=== PATIENT | male | born 1985 | race Caucasian/White ===

== ENCOUNTER 2020-12-31 22:53 | Emergency (ER) | payer OTHER ==
[2020-12-31 23:23] VITALS: TEMP 98.3
[2021-01-01] MEDS ORDERED: SODIUM CHLORIDE 0.9% 1,000 ML IV ONE (00:11)
[2021-01-01 00:31] LABS: Basophils % (A) 1 %; Eosinophils # (A) 0.1 k/uL (0-0.7); Eosinophils % (A) 1 %; HCT 48.1 % (39.0-53.0); HGB 16.1 gm/dL (13.0-17.5); Lymphocytes # (A) 0.6 k/uL (1.0-4.8); Lymphocytes % (A) 7 %; MCH 27.4 pg (25.0-35.0); MCHC 33.5 g/dL (31.0-37.0); MCV 81.8 fL (80.0-100.0); Mean Platelet Volume 7.1; Monocytes # (A) 0.7 k/uL (0-1.0); Monocytes % (A) 8 %; Neutrophils # (A) 7.1 k/uL (1.3-7.7); Neutrophils % (A) 82 %; Platelet Count 260 k/uL (150-450); RBC 5.87 m/uL (4.30-5.90); RDW 15.8 % (11.5-15.5); WBC 8.7 k/uL (3.8-10.6)
[2021-01-01] MEDS ORDERED: DIAZEPAM 5 MG/ML 2 ML INJ IVP STA (00:42)
[2021-01-01 00:50] LABS: Albumin 5.4 g/dL (3.5-5.0); Calcium 10.7 mg/dL (8.4-10.2); Magnesium 1.7 mg/dL (1.6-2.3); Phosphorus 3.7 mg/dL (2.5-4.5); Potassium 4.4 mmol/L (3.5-5.1); Total Bilirubin 2.5 mg/dL (0.2-1.3); Total Protein 8.7 g/dL (6.3-8.2)
[2021-01-01] MEDS ORDERED: MAGNESIUM SULFATE-D5W PMX 1 GM in DEXTROSE/WATER 1 100ML.BAG IVPB ONE (02:45)
--- NOTE | 2021-01-01 02:50 | ED ---
General Adult HPI - General Chief complaint: Nausea/Vomiting/Diarrhea Stated complaint: leg/hand cramps Time Seen by Provider: 01/01/21 00:11 Source: patient Mode of arrival: wheelchair Limitations: no limitations - History of Present Illness Initial comments: Patient is a 35-year-old man who presents to be evaluated for bilateral leg spasms that is been going on since about 9 PM tonight. He is having bilateral and spasms but not as severe. Spasms will last for minutes at a time, resolve but are recurring. He did have less severe episode last night that resolved and did not require him to come in. Patient does admit to drinking alcohol daily he states probably a pint and a half. -: hour(s) Location: left, right, lower extremity Radiation: non-radiation Severity scale (1-10): 10 Quality: other (Spasms) Consistency: constant Improves with: none Worsens with: none Associated Symptoms: denies other symptoms Treatments Prior to Arrival: none - Related Data Previous Rx's Medication Instructions Recorded Magnesium Oxide [Mag-Ox] 400 mg PO DAILY #30 tablet 01/01/21 diazePAM [Valium] 5 mg PO Q8HR PRN 3 Days #9 tab 01/01/21 Allergies Allergy/AdvReac Type Severity Reaction Status Date / Time amoxicillin Allergy Unknown Verified 12/31/20 23:20 Review of Systems ROS Statement: Those systems with pertinent positive or pertinent negative responses have been documented in the HPI. ROS Other: All systems not noted in ROS Statement are negative. Constitutional: Denies: fever, chills, weakness Respiratory: Denies: cough, dyspnea Cardiovascular: Denies: chest pain, palpitations, edema, syncope Gastrointestinal: Reports: vomiting, diarrhea. Denies: abdominal pain, constipation, melena, hematochezia Genitourinary: Denies: dysuria, frequency, hematuria Musculoskeletal: Reports: as per HPI, myalgia. Denies: back pain Skin: Denies: rash Neurological: Denies: headache, weakness, numbness, paresthesias Past Medical History Past Medical History: Cancer Additional Past Medical History / Comment(s): testicular History of Any Multi-Drug Resistant Organisms: None Reported Additional Past Surgical History / Comment(s): testicular surger Past Psychological History: No Psychological Hx Reported Smoking Status: Current every day smoker Past Alcohol Use History: Daily Past Drug Use History: Marijuana General Exam Limitations: no limitations General appearance: alert, in no apparent distress Head exam: Present: atraumatic, normocephalic Eye exam: Present: normal appearance. Absent: scleral icterus, conjunctival injection ENT exam: Present: mucous membranes dry Neck exam: Present: normal inspection Respiratory exam: Present: normal lung sounds bilaterally. Absent: respiratory distress, wheezes, rales, rhonchi, stridor Cardiovascular Exam: Present: regular rate, normal rhythm, normal heart sounds. Absent: systolic murmur, diastolic murmur, rubs, gallop GI/Abdominal exam: Present: soft. Absent: distended, tenderness, guarding, rebound, rigid, mass Extremities exam: Present: normal inspection, normal capillary refill, other (The patient did have intermittent spasms, while I was present he was having spasm to the muscles of the right calf and pretibial area.). Absent: pedal edema, calf tenderness Back exam: Present: normal inspection. Absent: CVA tenderness (R), CVA tenderness (L), paraspinal tenderness, vertebral tenderness Neurological exam: Present: alert. Absent: motor sensory deficit Skin exam: Present: warm, dry, intact, normal color. Absent: rash Course Vital Signs 12/31/20 01/01/21 01/01/21 23:20 00:34 02:00 Temperature 98.3 F Pulse Rate 85 81 68 Respiratory 18 22 18 Rate Blood Pressure 137/98 139/99 143/90 O2 Sat by Pulse 100 100 95 Oximetry Medical Decision Making - Medical Decision Making Patient had resolution spasms after fluids and Valium. Given his alcohol consumption some magnesium had been ordered as well. I did recommend tapering off his alcohol use, continuing the magnesium, and then we discussed appropriate further care and follow-up. Return parameters discussed - Lab Data Result diagrams: 01/01/21 00:19 01/01/21 00:19 Lab Results 01/01/21 01/01/21 Range/Units 00:19 00:19 WBC 8.7 (3.8-10.6) k/uL RBC 5.87 (4.30-5.90) m/uL Hgb 16.1 (13.0-17.5) gm/dL Hct 48.1 (39.0-53.0) % MCV 81.8 (80.0-100.0) fL MCH 27.4 (25.0-35.0) pg MCHC 33.5 (31.0-37.0) g/dL RDW 15.8 H (11.5-15.5) % Plt Count 260 (150-450) k/uL MPV 7.1 Neutrophils % 82 % Lymphocytes % 7 % Monocytes % 8 % Eosinophils % 1 % Basophils % 1 % Neutrophils # 7.1 (1.3-7.7) k/uL Lymphocytes # 0.6 L (1.0-4.8) k/uL Monocytes # 0.7 (0-1.0) k/uL Eosinophils # 0.1 (0-0.7) k/uL Basophils # 0.0 (0-0.2) k/uL Sodium 137 (137-145) mmol/L Potassium 4.4 (3.5-5.1) mmol/L Chloride 96 L (98-107) mmol/L Carbon Dioxide 26 (22-30) mmol/L Anion Gap 15 mmol/L BUN 15 (9-20) mg/dL Creatinine 1.23 (0.66-1.25) mg/dL Est GFR (CKD-EPI)AfAm 87 (>60 ml/min/1.73 sqM) Est GFR (CKD-EPI)NonAf 76 (>60 ml/min/1.73 sqM) Glucose 122 H (74-99) mg/dL Calcium 10.7 H (8.4-10.2) mg/dL Phosphorus 3.7 (2.5-4.5) mg/dL Magnesium 1.7 (1.6-2.3) mg/dL Total Bilirubin 2.5 H (0.2-1.3) mg/dL AST 266 H (17-59) U/L ALT 220 H (4-49) U/L Alkaline Phosphatase 222 H (38-126) U/L Total Protein 8.7 H (6.3-8.2) g/dL Albumin 5.4 H (3.5-5.0) g/dL Disposition Clinical Impression: Spasms of the hands or feet, Alcohol abuse Disposition: HOME SELF-CARE Condition: Good Instructions (If sedation given, give patient instructions): At-Risk Alcohol Use (ED), Muscle Spasm (ED) Prescriptions: Magnesium Oxide [Mag-Ox] 400 mg PO DAILY #30 tablet diazePAM [Valium] 5 mg PO Q8HR PRN 3 Days #9 tab PRN Reason: Spasms Is patient prescribed a controlled substance at d/c from ED?: Yes When asked, does pt state using other controlled substances?: No If prescribed controlled substance>3 days was MAPS reviewed?: Prescribed <3 Days Referrals: None,Stated [Primary Care Provider] - 1-2 days
[2021-01-01] MEDS ORDERED: ONDANSETRON 4 MG/2 ML VIAL IVP STA (02:56)
[2021-01-01 06:11] VITALS: BP 145/92; PULSE 70; RESP 14
== END 2021-01-01 06:12 | disposition home or self-care (01) ==
LOC: EC 22:53
DX: M62.831 Muscle spasm of calf (principal); R11.2 Nausea with vomiting, unspecified; R19.7 Diarrhea, unspecified; F10.10 Alcohol abuse, uncomplicated; F17.200 Nicotine dependence, unspecified, uncomplicated; Z88.0 Allergy status to penicillin
CPT/HCPCS: 99284; 96365; 96375; 96361; 36415; 93005; 80053; 83735; 84100; 85025; J3360; J2405; J3475

== ENCOUNTER 2021-10-28 08:56 | Inpatient (IN) | payer OTHER ==
[2021-10-28] MEDS ORDERED: SODIUM CHLORIDE 0.9% 1,000 ML IV STA (09:13)
[2021-10-28] MEDS ORDERED: SODIUM CHLORIDE 0.9% 500 ML 500 ML IV STA (09:13)
[2021-10-28] MEDS ORDERED: LORazepam 2 MG/ML INJ IV PRN (09:14)
--- NOTE | 2021-10-28 09:30 | ED ---
Alcohol HPI - General Chief Complaint: Alcohol Stated Complaint: Alcohol Time Seen by Provider: 10/28/21 09:06 Source: patient, family, RN notes reviewed Mode of arrival: wheelchair Limitations: no limitations - History of Present Illness Initial Comments: 36-year-old male presents emergency Department with chief complaint of alcohol abuse alcohol withdrawal. Patient states that he did drink some like her prior arrival to help with her symptoms. Patient states he gets very shaky, nauseated. Patient's had multiple seizures of recent from withdrawal. He states he actually was admitted the hospital 3 weeks ago. Patient states he wants to get sober for his withdrawal symptoms. Patient has no physical complaints he has been told that he has liver disease from alcohol abuse. Patient states he drinks at least a fifth to half gallon a day. Patient doesn't to marijuana use. No other physical complaints. - Related Data Home Medications Medication Instructions Recorded Confirmed Omeprazole 20 mg PO BID 10/28/21 10/28/21 levETIRAcetam [Keppra] 750 mg PO BID 10/28/21 10/28/21 Allergies Allergy/AdvReac Type Severity Reaction Status Date / Time amoxicillin Allergy Rash/Hives Verified 10/28/21 09:39 Review of Systems ROS Statement: Those systems with pertinent positive or pertinent negative responses have been documented in the HPI. ROS Other: All systems not noted in ROS Statement are negative. Past Medical History Past Medical History: Cancer, Seizure Disorder Additional Past Medical History / Comment(s): testicular, alcohol History of Any Multi-Drug Resistant Organisms: None Reported Additional Past Surgical History / Comment(s): testicular surger Past Psychological History: No Psychological Hx Reported Smoking Status: Current every day smoker Past Alcohol Use History: Daily Past Drug Use History: Marijuana General Exam Limitations: no limitations General appearance: alert, in no apparent distress Head exam: Present: atraumatic, normocephalic, normal inspection Eye exam: Present: normal appearance, PERRL, EOMI. Absent: scleral icterus, conjunctival injection, periorbital swelling ENT exam: Present: normal exam, normal oropharynx, mucous membranes moist Neck exam: Present: normal inspection, full ROM. Absent: tenderness, meningismus, lymphadenopathy Respiratory exam: Present: normal lung sounds bilaterally. Absent: respiratory distress, wheezes, rales, rhonchi, stridor Cardiovascular Exam: Present: regular rate, normal rhythm, normal heart sounds. Absent: systolic murmur, diastolic murmur, rubs, gallop, clicks GI/Abdominal exam: Present: soft, normal bowel sounds. Absent: distended, tenderness, guarding, rebound, rigid Skin exam: Present: warm, dry, intact, normal color. Absent: rash Course Vital Signs 10/28/21 08:57 Temperature 97.7 F Pulse Rate 93 Respiratory 18 Rate Blood Pressure 143/98 O2 Sat by Pulse 99 Oximetry Medical Decision Making - Medical Decision Making Patient's current alcohol is 455, patient does have a history of alcohol withdrawal with seizure of recent. Patient was placed on CIWA, with Ativan withdrawal protocol. Patient will be admitted for further hydration, management of symptoms - Lab Data Result diagrams: 10/28/21 09:17 10/28/21 09:17 Lab Results 10/28/21 10/28/21 Range/Units 09:17 09:17 WBC 6.8 (3.8-10.6) k/uL RBC 5.05 (4.30-5.90) m/uL Hgb 16.7 (13.0-17.5) gm/dL Hct 49.8 (39.0-53.0) % MCV 98.7 (80.0-100.0) fL MCH 33.2 (25.0-35.0) pg MCHC 33.6 (31.0-37.0) g/dL RDW 14.5 (11.5-15.5) % Plt Count 291 (150-450) k/uL MPV 6.7 Neutrophils % 61 % Lymphocytes % 23 % Monocytes % 7 % Eosinophils % 5 % Basophils % 1 % Neutrophils # 4.1 (1.3-7.7) k/uL Lymphocytes # 1.6 (1.0-4.8) k/uL Monocytes # 0.5 (0-1.0) k/uL Eosinophils # 0.3 (0-0.7) k/uL Basophils # 0.1 (0-0.2) k/uL Sodium 149 H (137-145) mmol/L Potassium 3.4 L (3.5-5.1) mmol/L Chloride 113 H (98-107) mmol/L Carbon Dioxide 22 (22-30) mmol/L Anion Gap 14 mmol/L BUN 5 L (9-20) mg/dL Creatinine 0.93 (0.66-1.25) mg/dL Est GFR (CKD-EPI)AfAm >90 (>60 ml/min/1.73 sqM) Est GFR (CKD-EPI)NonAf >90 (>60 ml/min/1.73 sqM) Glucose 117 H (74-99) mg/dL Calcium 8.8 (8.4-10.2) mg/dL Magnesium 2.1 (1.6-2.3) mg/dL Total Bilirubin 0.8 (0.2-1.3) mg/dL AST 173 H (17-59) U/L ALT 138 H (4-49) U/L Alkaline Phosphatase 152 H (38-126) U/L Total Protein 7.4 (6.3-8.2) g/dL Albumin 4.4 (3.5-5.0) g/dL Lipase 226 (23-300) U/L Serum Alcohol 455 H* mg/dL Disposition Clinical Impression: Alcoholic intoxication, History of seizure due to alcohol withdrawal, Alcohol abuse Disposition: ADMITTED IP TO THIS HOSP Condition: Fair Referrals: None,Stated [Primary Care Provider] - 1-2 days Time of Disposition: 10:43
[2021-10-28 09:49] LABS: Basophils # (A) 0.1 k/uL (0-0.2); Basophils % (A) 1 %; Eosinophils # (A) 0.3 k/uL (0-0.7); Eosinophils % (A) 5 %; HCT 49.8 % (39.0-53.0); HGB 16.7 gm/dL (13.0-17.5); Lymphocytes # (A) 1.6 k/uL (1.0-4.8); Lymphocytes % (A) 23 %; MCH 33.2 pg (25.0-35.0); MCHC 33.6 g/dL (31.0-37.0); MCV 98.7 fL (80.0-100.0); Mean Platelet Volume 6.7; Monocytes # (A) 0.5 k/uL (0-1.0); Monocytes % (A) 7 %; Neutrophils # (A) 4.1 k/uL (1.3-7.7); Neutrophils % (A) 61 %; Platelet Count 291 k/uL (150-450); RBC 5.05 m/uL (4.30-5.90); RDW 14.5 % (11.5-15.5); WBC 6.8 k/uL (3.8-10.6)
[2021-10-28 09:56] LABS: ALT 138 U/L (4-49); AST 173 U/L (17-59); African American GFR (CKD) >90 (>60 ml/min/1.73 sqM); Albumin 4.4 g/dL (3.5-5.0); Alkaline Phosphatase 152 U/L (38-126); Anion Gap 14 mmol/L; Blood Urea Nitrogen 5 mg/dL (9-20); Calcium 8.8 mg/dL (8.4-10.2); Carbon Dioxide 22 mmol/L (22-30); Chloride 113 mmol/L (98-107); Glucose 117 mg/dL (74-99); Lipase 226 U/L (23-300); Magnesium 2.1 mg/dL (1.6-2.3); Non-African American GFR(CKD) >90 (>60 ml/min/1.73 sqM); Potassium 3.4 mmol/L (3.5-5.1); Sodium 149 mmol/L (137-145); Total Bilirubin 0.8 mg/dL (0.2-1.3); Total Protein 7.4 g/dL (6.3-8.2)
[2021-10-28 10:06] LABS: Alcohol 455 mg/dL
[2021-10-28] MEDS ORDERED: NALOXONE 0.4 MG/ML 1 ML VIAL IV PRN (10:44)
[2021-10-28] MEDS ORDERED: POTASSIUM CHLORIDE ER 20 MEQ TAB.ER PO STA (10:45)
[2021-10-28] MEDS ORDERED: NICOTINE 21MG/24HR PATCH TRANSDERM STA (10:54)
[2021-10-28 11:08] LABS: Appearance,Urine Clear (Clear); Bilirubin,Urine Negative (Negative); Blood,Urine Negative (Negative); Color,Urine Light Yellow; Glucose,Urine (UA) Negative (Negative); Ketones,Urine Negative (Negative); Leukocyte Esterase,Urine Negative (Negative); Nitrite,Urine Negative (Negative); Protein,Urine Negative (Negative); Specific Gravity,Urine 1.003 (1.001-1.035); Urobilinogen,Urine <2.0 mg/dL (<2.0)
[2021-10-28] MEDS: SODIUM CHLORIDE 0.9% 1,000 ML IV SCH (11:23)
[2021-10-28] MEDS: LORazepam 2 MG/ML INJ IV PRN (11:25)
[2021-10-28 11:45] LABS: Amphetamine Screen,Urine Not Detected (NotDetected); Barbiturate Screen,Urine Not Detected (NotDetected); Benzodiazepines Screen,Urine Not Detected (NotDetected); Cocaine Screen,Urine Not Detected (NotDetected); Methadone Screen, Urine Not Detected (NotDetected); Opiate Screen,Urine Not Detected (NotDetected); Oxycodone Screen, Urine Not Detected (NotDetected); Phencyclidine Screen,Urine Not Detected (NotDetected); Tricyclic Antidepressant,Urine Not Detected (NotDetected); Urn Cannabinoid Scrn Detected (NotDetected)
--- NOTE | 2021-10-28 12:03 | P.HPIM ---
History of Present Illness H&P Date: 10/28/21 History of Presenting Illness: Patient is a very pleasant 36-year-old male with a past medical history of daily cannabis use, nicotine dependence, alcohol abuse, alcohol cirrhosis and seizures. He presented to the emergency department with his family at bedside secondary to concerns of alcohol withdrawal and recent alcohol withdrawal resulting in multiple seizures and prolonged hospitalization at [facility]. Patient reported last drink was just prior to arrival and reports drinking anywhere from a fifth of whiskey to a half a gallon of whiskey daily. Patient states that he would like some assistance with detoxing and is interested in an inpatient drug and alcohol rehab once safely detoxed in the hospital. Patient reports currently feeling very anxious and tremulous, he otherwise denies having any complaints including headache, lightheadedness, dizziness, chest pain, palpitations, shortness of breath, nausea, vomiting, or experiencing any numbness/tingling/weakness in his extremities. Patient denies having any suicidal or homicidal ideations and denies having any tactile, auditory, or visual hallucinations. Patient denies any recent falls or injuries. In the emergency department, patient underwent full evaluation. Labs completed, CBC was unremarkable and serum alcohol level was 455, urine drug screen positive for marijuana, CMP revealing hypernatremia with sodium of 149, hypokalemia with potassium of 3.4, hyperchloremia with chloride of 113 and examined enteritis with AST of 173, ALT 138, and alkaline phosphatase of 152. Patient was admitted under our services at this time. Review of systems: Pertinent positives and negatives as discussed in HPI, a complete review of systems was performed and all other systems are negative. Physical exam: Vital signs reviewed and stable. General: Nontoxic, no distress and appears stated age. Derm: Skin warm and dry, normal coloration for ethnicity. Head: Atraumatic, normocephalic and symmetric. Eyes: EOMs intact, no lid lag, and anicteric sclera Mouth: no lip lesions, mucus membranes moist Cardiovascular: regular rate and rhythm with normal S1S2, no murmur, positive posterior tibial pulses bilaterally, and cap refill < 2 seconds. Lungs: Respirations even, regular, and unlabored on room air. Lungs CTA bilaterally, no rhonchi, no rales, no wheezing, and no accessory muscle usage. Abdominal: soft, nontender to palpation, no guarding, no appreciable organomegaly Ext: ROM intact. No gross muscle atrophy, no edema, no contractures Neuro: Speech clear, face symmetrical and CN II-XII grossly intact with no noted focal neuro deficits Psych: Alert and oriented to person, place, time, and situation. Appropriate and pleasant affect. Assessment and Plan of Care: EtOH abuse impending withdrawal with history of recurrent withdrawal seizures -[facility] Protocol with symptom triggered medication management with benzodiazepines. -Continuous IV hydration. -Thiamine 100 mg twice a day -Multivitamin daily -Folate 1 mg daily -Seizure, fall, aspiration, and elopement precautions in place. -Urine drug screen -Continued close monitoring of electrolytes and replace as needed. -Telemetry monitoring. -Continue Keppra 750 mg twice daily -Case management consulted for assistance with finding placement for patient to an inpatient drug and alcohol rehabilitation center upon discharge Hypokalemia -Replaced, we will continue to monitor with repeat a.m. labs. Hypernatremia and hyperchloremia secondary to dehydration resulting from excessive daily alcohol use -Rehydration with IV fluids -We will continue to monitor with repeat a.m. labs. Nicotine dependence -Patient reports smoking greater than one pack of cigarettes daily patient placed on nicotine patch and as needed nicotine gum. -Continue to encourage and educate patient on the benefits of smoking cessation and risks associated with continued use. Cannabinoid abuse -Patient encouraged to stop daily use of cannabis. The patient is admitted with an anticipated greater than 2 midnight stay for evaluation of alcohol intoxication and impending withdrawal with history of recurrent withdrawal seizures. CODE STATUS: Full code DVT prophylaxis: Heparin Discussed with: Patient and, RN, patient's father, and patient's brother Anticipated discharge date: Clinical course to determine Anticipated discharge place: Patient requesting assistance with placement in inpatient drug and alcohol rehabilitation program A total of 43 minutes was spent on the care of this complex patient more than 50% of the time was spent in counseling and care coordination. I reviewed the documentation as provided by the EZEQUIEL above, who is the original author of this note. I agree with the documented assessment and plan, with the following changes: None Past Medical History Past Medical History: Cancer, Seizure Disorder Additional Past Medical History / Comment(s): testicular, alcohol History of Any Multi-Drug Resistant Organisms: None Reported Additional Past Surgical History / Comment(s): testicular surger Past Psychological History: No Psychological Hx Reported Smoking Status: Current every day smoker Past Alcohol Use History: Daily Past Drug Use History: Marijuana Medications and Allergies Home Medications Medication Instructions Recorded Confirmed Type Omeprazole 20 mg PO BID 10/28/21 10/28/21 History levETIRAcetam [Keppra] 750 mg PO BID 10/28/21 10/28/21 History Allergies Allergy/AdvReac Type Severity Reaction Status Date / Time amoxicillin Allergy Rash/Hives Verified 10/28/21 09:39 Physical Exam Osteopathic Statement: *. No significant issues noted on an osteopathic structural exam other than those noted in the History and Physical/Consult. Vitals: Vital Signs Temp Pulse Resp BP Pulse Ox 10/28/21 11:03 77 18 135/81 98 10/28/21 08:57 97.7 F 93 18 143/98 99 Intake and Output 10/27/21 10/28/21 10/28/21 22:59 06:59 14:59 Other: Weight 70.307 kg Results CBC & Chem 7: 10/28/21 09:17 10/28/21 09:17 Labs: Abnormal Lab Results - Last 24 Hours (Table) 10/28/21 10/28/21 Range/Units 09:17 09:17 Sodium 149 H (137-145) mmol/L Potassium 3.4 L (3.5-5.1) mmol/L Chloride 113 H (98-107) mmol/L BUN 5 L (9-20) mg/dL Glucose 117 H (74-99) mg/dL AST 173 H (17-59) U/L ALT 138 H (4-49) U/L Alkaline Phosphatase 152 H (38-126) U/L U Marijuana (THC) Screen Detected H (NotDetected) Serum Alcohol 455 H* mg/dL
[2021-10-28] MEDS ORDERED: NICOTINE GUM (POLACRILEX) 2 MG GUM BUCCAL PRN (12:04)
[2021-10-28] MEDS: PANTOPRAZOLE 40 MG TABLET PO SCH (17:33)
[2021-10-28] MEDS: THIAMINE 100 MG TAB PO SCH (17:33)
[2021-10-28] MEDS: HEPARIN SODIUM,PORCINE/PF 5,000 UNIT/0.5 ML SYRINGE SQ SCH ×2 (17:33→23:25)
[2021-10-29] MEDS ORDERED: ONDANSETRON 4 MG/2 ML VIAL IVP STA (05:11)
[2021-10-29] MEDS: LORazepam 2 MG/ML INJ IV PRN ×4 (05:47→22:26)
[2021-10-29] MEDS: SODIUM CHLORIDE 0.9% 1,000 ML IV SCH ×2 (05:51→20:09)
[2021-10-29] MEDS: PANTOPRAZOLE 40 MG TABLET PO SCH ×2 (08:56→17:31)
[2021-10-29] MEDS: THIAMINE 100 MG TAB PO SCH ×2 (08:56→17:31)
[2021-10-29] MEDS: HEPARIN SODIUM,PORCINE/PF 5,000 UNIT/0.5 ML SYRINGE SQ SCH ×2 (08:56→17:31)
[2021-10-29] MEDS: NICOTINE 21MG/24HR PATCH TRANSDERM SCH (08:57)
--- NOTE | 2021-10-29 14:56 | P.PN ---
Subjective Progress Note Date: 10/29/21 Hospital course: Patient is a very pleasant 36-year-old male with a past medical history of daily cannabis use, nicotine dependence, alcohol abuse, alcohol cirrhosis and seizures. He presented to the emergency department with his family at bedside secondary to concerns of alcohol withdrawal and recent alcohol withdrawal resulting in multiple seizures and prolonged hospitalization at [facility]. Patient reported last drink was just prior to arrival and reports drinking anywhere from a fifth of whiskey to a half a gallon of whiskey daily. Patient states that he would like some assistance with detoxing and is interested in an inpatient drug and alcohol rehab once safely detoxed in the hospital. Patient reported feeling very anxious and tremulous, he otherwise denied having any complaints including headache, lightheadedness, dizziness, chest pain, palpitations, shortness of breath, nausea, vomiting, or experiencing any numbness/tingling/weakness in his extremities. Patient denied having any suicidal or homicidal ideations and denies having any tactile, auditory, or v isual hallucinations. Patient denied any recent falls or injuries. In the emergency department, patient underwent full evaluation. Labs completed, CBC was unremarkable and serum alcohol level was 455, urine drug screen positive for marijuana, CMP revealing hypernatremia with sodium of 149, hypokalemia with potassium of 3.4, hyperchloremia with chloride of 113 and examined enteritis with AST of 173, ALT 138, and alkaline phosphatase of 152. Patient was admitted under our services at this time. Physical exam: Patient was seen and fully evaluated at bedside this morning. Patient had noted tremors and diaphoresis, RN notified that patient will require Ativan per CIWA protocol. RN at bedside and calculated CIWA score of 8 at this time and to medicate accordingly. We will also start patient on scheduled Valium in addition to CIWA scale to prevent withdrawal seizures. Patient reports tremors and nausea but denies any episodes of vomiting, headache, changes in vision or hearing, chest pain, palpitations, shortness of breath, abdominal pain, or experiencing any numbness/tingling/weakness in his extremities. Patient denies having any visual/tactile/auditory hallucinations. Patient reporting he is not had much of an appetite, nutritional protein supplements ordered at this time. Vital signs reviewed and stable. General: Nontoxic, no distress and appears stated age. Derm: Skin warm and dry, normal coloration for ethnicity. Head: Atraumatic, normocephalic and symmetric. Eyes: EOMs intact, no lid lag, and anicteric sclera Mouth: no lip lesions, mucus membranes moist Cardiovascular: regular rate and rhythm with normal S1S2, no murmur, positive posterior tibial pulses bilaterally, and cap refill < 2 seconds. Lungs: Respirations even, regular, and unlabored on room air. Lungs CTA bilaterally, no rhonchi, no rales, no wheezing, and no accessory muscle usage. Abdominal: soft, nontender to palpation, no guarding, no appreciable organomegaly Ext: ROM intact. No gross muscle atrophy, no edema, no contractures Neuro: Speech clear, face symmetrical and CN II-XII grossly intact with no noted focal neuro deficits Psych: Alert and oriented to person, place, time, and situation. Appropriate and pleasant affect. Assessment and Plan of Care: EtOH abuse impending withdrawal with history of recurrent withdrawal seizures -CIWA Protocol with symptom triggered medication management with benzodiazepines. -Valium 5 mg 3 times daily, will taper -Continuous IV hydration. -Thiamine 100 mg twice a day -Multivitamin daily -Folate 1 mg daily -Seizure, fall, aspiration, and elopement precautions in place. -Urine drug screen positive for marijuana -Continued close monitoring of electrolytes and replace as needed. -Telemetry monitoring. -Continue Keppra 750 mg twice daily -Case management consulted for assistance with finding placement for patient to an inpatient drug and alcohol rehabilitation center upon discharge Hypokalemia -Replaced, we will continue to monitor with repeat a.m. labs. Hypernatremia and hyperchloremia secondary to dehydration resulting from ex cessive daily alcohol use -Rehydration with IV fluids -We will continue to monitor with repeat a.m. labs. Nicotine dependence -Patient reports smoking greater than one pack of cigarettes daily patient placed on nicotine patch and as needed nicotine gum. -Continue to encourage and educate patient on the benefits of smoking cessation and risks associated with continued use. Cannabinoid abuse -Patient encouraged to stop daily use of cannabis. CODE STATUS: Full code DVT prophylaxis: Heparin Discussed with: Patient and, RN, patient's father, and patient's brother Anticipated discharge date: Clinical course to determine Anticipated discharge place: Patient requesting assistance with placement in inpatient drug and alcohol rehabilitation program, [facility]. A total of 35 minutes was spent on the care of this complex patient more than 50% of the time was spent in counseling and care coordination. Objective - Vital Signs Vital signs: Vital Signs Temp 98.3 F 10/29/21 07:45 Pulse 71 10/29/21 07:45 Resp 18 10/29/21 07:45 BP 137/80 10/29/21 07:45 Pulse Ox 97 10/29/21 07:45 Intake & Output 10/28/21 10/29/21 10/29/21 18:59 06:59 18:59 Intake Total 500 Balance 500 Weight 70.307 kg Intake: Intake, IV Titration 150 Amount Sodium Chloride 0.9% 1, 150 000 ml @ 75 mls/hr IV . [id number] [facility] Rx#:[id number] Oral 350 Other: Voiding Method Toilet Toilet # Voids 2 - Labs CBC & Chem 7: 10/28/21 09:17 10/28/21 09:17 Labs: Abnormal Lab Results - Last 24 Hours (Table) 10/28/21 Range/Units 09:17 U Marijuana (THC) Screen Detected H (NotDetected)
[2021-10-29] MEDS: diazePAM 5 MG TAB PO SCH ×2 (17:31→22:25)
[2021-10-30] MEDS: HEPARIN SODIUM,PORCINE/PF 5,000 UNIT/0.5 ML SYRINGE SQ SCH ×4 (00:24→23:05)
[2021-10-30] MEDS: SODIUM CHLORIDE 0.9% 1,000 ML IV SCH ×2 (04:08→17:56)
[2021-10-30] MEDS: LORazepam 2 MG/ML INJ IV PRN ×3 (05:35→16:45)
[2021-10-30] MEDS: NICOTINE 21MG/24HR PATCH TRANSDERM SCH (07:21)
[2021-10-30] MEDS: PANTOPRAZOLE 40 MG TABLET PO SCH ×2 (07:21→16:55)
[2021-10-30] MEDS: THIAMINE 100 MG TAB PO SCH ×2 (07:21→16:55)
[2021-10-30] MEDS: diazePAM 5 MG TAB PO SCH ×3 (07:22→21:04)
[2021-10-30 09:27] LABS: HCT 42.4 % (39.6-50.0); HGB 13.9 g/dL (13.0-17.0); MCH 31.4 pg (27.0-32.0); MCHC 32.8 g/dL (32.0-37.0); MCV 95.9 fL (80.0-97.0); Mean Platelet Volume 10.2 fL (9.5-12.2); NRBC Per 100 WBC 0 /100 WBCS (0.0-0.0); Platelet Count 187 X 10*3/uL (140-440); RBC 4.42 X 10*6/uL (4.40-5.60); RDW 13.2 % (11.5-14.5); WBC 5.05 X 10*3/uL (4.50-10.00)
[2021-10-30 09:53] LABS: African American GFR (CKD) 110.9 (60.0-200.0); Albumin 3.6 g/dL (3.8-4.9); Albumin/Globulin Ratio 1.71 (1.60-3.17); Anion Gap 10.6 mmol/L (10.00-18.00); Calcium 8.4 mg/dL (8.7-10.3); Carbon Dioxide 25.4 mmol/L (20.0-27.5); Globulin 2.1 g/dL (1.6-3.3); Magnesium 1.7 mg/dL (1.5-2.4); Non-African American GFR(CKD) 95.7 (60.0-200.0); Potassium 3.5 mmol/L (3.5-5.5); Total Bilirubin 1.6 mg/dL (0.30-1.20); Total Protein 5.7 g/dL (6.2-8.2)
--- NOTE | 2021-10-30 10:14 | P.PN ---
Subjective Progress Note Date: 10/30/21 Hospital course: Patient is a very pleasant 36-year-old male with a past medical history of daily cannabis use, nicotine dependence, alcohol abuse, alcohol cirrhosis and seizures. He presented to the emergency department with his family at bedside secondary to concerns of alcohol withdrawal and recent alcohol withdrawal resulting in multiple seizures and prolonged hospitalization at [facility]. Patient reported last drink was just prior to arrival and reports drinking anywhere from a fifth of whiskey to a half a gallon of whiskey daily. Patient states that he would like some assistance with detoxing and is interested in an inpatient drug and alcohol rehab once safely detoxed in the hospital. Patient reported feeling very anxious and tremulous, he otherwise denied having any complaints including headache, lightheadedness, dizziness, chest pain, palpitations, shortness of breath, nausea, vomiting, or experiencing any numbness/tingling/weakness in his extremities. Patient denied having any suicidal or homicidal ideations and denies having any tactile, auditory, or v isual hallucinations. Patient denied any recent falls or injuries. In the emergency department, patient underwent full evaluation. Labs completed, CBC was unremarkable and serum alcohol level was 455, urine drug screen positive for marijuana, CMP revealing hypernatremia with sodium of 149, hypokalemia with potassium of 3.4, hyperchloremia with chloride of 113 and examined enteritis with AST of 173, ALT 138, and alkaline phosphatase of 152. Patient was admitted under our services at this time. Physical exam: Patient was seen and fully evaluated at bedside this morning. Patient again had noted tremors but no diaphoresis. This morning he reports feeling shaky with continued nausea. Patient has received 7 mg of Ativan in addition to scheduled Valium over the past 24 hours. He denies experiencing any headache, lightheadedness, dizziness, chest pain, palpitations, shortness of breath, abdominal pain, or experiencing any numbness/tingling/weakness in his extremities. Morning labs reviewed revealed resolution of hypokalemia, hypernatremia, and hyperchloremia and findings of hypomagnesemia with magnesium of 1.7 and orders were placed for replacement. Vital signs reviewed and stable. General: Nontoxic, no distress and appears stated age. Derm: Skin warm and dry, normal coloration for ethnicity. Head: Atraumatic, normocephalic and symmetric. Eyes: EOMs intact, no lid lag, and anicteric sclera Mouth: no lip lesions, mucus membranes moist Cardiovascular: regular rate and rhythm with normal S1S2, no murmur, positive posterior tibial pulses bilaterally, and cap refill < 2 seconds. Lungs: Respirations even, regular, and unlabored on room air. Lungs CTA bilaterally, no rhonchi, no rales, no wheezing, and no accessory muscle usage. Abdominal: soft, nontender to palpation, no guarding, no appreciable organomegaly Ext: ROM intact. No gross muscle atrophy, no edema, no contractures Neuro: Speech clear, face symmetrical and CN II-XII grossly intact with no noted focal neuro deficits Psych: Alert and oriented to person, place, time, and situation. Appropriate and pleasant affect. Assessment and Plan of Care: EtOH abuse impending withdrawal with history of recurrent withdrawal seizures Transaminitis likely secondary to daily EtOH use/abuse and previous diagnosis of alcoholic cirrhosis -WA Protocol with symptom triggered medication management with benzodiaz epines. -Valium 5 mg 3 times daily, will taper -Continuous IV hydration. -Thiamine 100 mg twice a day -Multivitamin daily -Folate 1 mg daily -Seizure, fall, aspiration, and elopement precautions in place. -Urine drug screen positive for marijuana -Continued close monitoring of electrolytes and replace as needed. -Telemetry monitoring. -Continue Keppra 750 mg twice daily -Case management consulted for assistance with finding placement for patient to an inpatient drug and alcohol rehabilitation center upon discharge Hypokalemia, resolved -We will continue to monitor with repeat a.m. labs. Hypernatremia and hyperchloremia secondary to dehydration resulting from excessive daily alcohol use, resolved with IV fluid hydration -Rehydration with IV fluids -We will continue to monitor with repeat a.m. labs. Hypomagnesemia -Replaced, we will continue to monitor with repeat a.m. labs. Nicotine dependence -Patient reports smoking greater than one pack of cigarettes daily patient placed on nicotine patch and as needed nicotine gum. -Continue to encourage and educate patient on the benefits of smoking cessation and risks associated with continued use. Cannabinoid abuse -Patient encouraged to stop daily use of cannabis. CODE STATUS: Full code DVT prophylaxis: Heparin Discussed with: Patient and RN Anticipated discharge date: Clinical course to determine Anticipated discharge place: Patient requesting assistance with placement in inpatient drug and alcohol rehabilitation program, plans for [facility] upon discharge. A total of 36 minutes was spent on the care of this complex patient more than 50% of the time was spent in counseling and care coordination. Objective - Vital Signs Vital signs: Vital Signs Temp 97.7 F 10/30/21 07:36 Pulse 63 10/30/21 07:36 Resp 17 10/30/21 07:36 BP 149/91 10/30/21 07:36 Pulse Ox 95 10/30/21 07:36 Intake & Output 10/29/21 10/30/21 10/30/21 18:59 06:59 18:59 Intake Total 1100 Balance 1100 Intake: Intake, IV Titration 600 Amount Sodium Chloride 0.9% 1, 600 000 ml @ 75 mls/hr IV . [id number] [facility] Rx#:[id number] Oral 500 Other: Voiding Method Toilet Toilet - Labs CBC & Chem 7: 10/30/21 04:20 10/30/21 04:20 Labs: Abnormal Lab Results - Last 24 Hours (Table) 10/30/21 Range/Units 04:20 BUN 4.0 L (9.0-27.0) mg/dL BUN/Creatinine Ratio 4.00 L (12.00-20.00) Ratio Calcium 8.4 L (8.7-10.3) mg/dL Total Bilirubin 1.60 H (0.30-1.20) mg/dL AST 88 H (14-35) U/L ALT 97 H (10-49) U/L Alkaline Phosphatase 156 H (41-126) U/L Total Protein 5.7 L (6.2-8.2) g/dL Albumin 3.6 L (3.8-4.9) g/dL
[2021-10-30 11:23] LABS: Glucose,Whole Blood 105 mg/dL (75-99)
[2021-10-30] MEDS: MAGNESIUM SULFATE-D5W PMX 1 GM in DEXTROSE/WATER 1 100ML.BAG IVPB SCH ×2 (16:46→17:56)
[2021-10-31] MEDS: LORazepam 2 MG/ML INJ IV PRN (02:30)
[2021-10-31] MEDS: SODIUM CHLORIDE 0.9% 1,000 ML IV SCH ×2 (06:17→16:51)
[2021-10-31] MEDS: NICOTINE 21MG/24HR PATCH TRANSDERM SCH (07:43)
[2021-10-31] MEDS: diazePAM 5 MG TAB PO SCH ×3 (07:44→21:00)
[2021-10-31] MEDS: PANTOPRAZOLE 40 MG TABLET PO SCH ×2 (07:44→16:52)
[2021-10-31] MEDS: THIAMINE 100 MG TAB PO SCH ×2 (07:44→16:52)
[2021-10-31] MEDS: HEPARIN SODIUM,PORCINE/PF 5,000 UNIT/0.5 ML SYRINGE SQ SCH ×3 (07:44→23:23)
--- NOTE | 2021-10-31 13:28 | P.PN ---
Subjective Progress Note Date: 10/31/21 Principal diagnosis: Alcohol withdrawal Patient is a very pleasant 36-year-old male with a past medical history of daily cannabis use, nicotine dependence, alcohol abuse, alcohol cirrhosis and seizures. He presented to the emergency department with his family at bedside secondary to concerns of alcohol withdrawal and recent alcohol withdrawal resulting in multiple seizures and prolonged hospitalization at [facility]. Patient reported last drink was just prior to arrival and reports drinking anywhere from a fifth of whiskey to a half a gallon of whiskey daily. Patient states that he would like some assistance with detoxing and is interested in an inpatient drug and alcohol rehab once safely detoxed in the hospital. Patient reported feeling very anxious and tremulous, he otherwise denied having any complaints including headache, lightheadedness, dizziness, chest pain, palpitations, shortness of breath, nausea, vomiting, or experiencing any numb ness/tingling/weakness in his extremities. Patient denied having any suicidal or homicidal ideations and denies having any tactile, auditory, or visual hallucinations. Patient denied any recent falls or injuries. In the emergency department, patient underwent full evaluation. Labs completed, CBC was unremarkable and serum alcohol level was 455, urine drug screen positive for marijuana, CMP revealing hypernatremia with sodium of 149, hypokalemia with potassium of 3.4, hyperchloremia with chloride of 113 and examined enteritis with AST of 173, ALT 138, and alkaline phosphatase of 152. 10/31/2021: Patient seen and examined today. He continues to complain of alcohol withdrawal symptoms including hallucinations. Patient is still requiring IV Ativan per nursing staff Objective - Vital Signs Vital signs: Vital Signs Temp 97.7 F 10/31/21 08:00 Pulse 59 L 10/31/21 08:00 Resp 18 10/31/21 08:00 BP 158/93 10/31/21 08:00 Pulse Ox 97 10/31/21 08:00 Intake & Output 10/30/21 10/31/21 10/31/21 18:59 06:59 18:59 Other: Voiding Method Toilet # Voids 5 # Bowel Movements 1 - Exam Vital signs reviewed and stable. General: Nontoxic, no distress and appears stated age. Derm: Skin warm and dry, normal coloration for ethnicity. Head: Atraumatic, normocephalic and symmetric. Eyes: EOMs intact, no lid lag, and anicteric sclera Mouth: no lip lesions, mucus membranes moist Cardiovascular: regular rate and rhythm with normal S1S2, no murmur, positive posterior tibial pulses bilaterally, and cap refill < 2 seconds. Lungs: Respirations even, regular, and unlabored on room air. Lungs CTA bilaterally, no rhonchi, no rales, no wheezing, and no accessory muscle usage. Abdominal: soft, nontender to palpation, no guarding, no appreciable organomegaly Ext: ROM intact. No gross muscle atrophy, no edema, no contractures Neuro: Speech clear, face symmetrical and CN II-XII grossly intact with no noted focal neuro deficits Psych: Alert and oriented to person, place, time, and situation. Appropriate and pleasant affect. - Labs CBC & Chem 7: 10/30/21 04:20 10/30/21 04:20 Assessment and Plan (1) Alcohol abuse Current Visit: Yes Status: Acute Code(s): F10.10 - ALCOHOL ABUSE, UNCOMPLICATED SNOMED Code(s): 18208134 (2) Alcoholic intoxication Current Visit: Yes Status: Acute Code(s): F10.929 - ALCOHOL USE, UNSPECIFIED WITH INTOXICATION, UNSPECIFIED SNOMED Code(s): 48786213 Plan: EtOH abuse with withdrawal symptoms. Transaminitis -CIWA Protocol with symptom triggered medication management with benzodiazepines. -Also on Valium 5 mg 3 times a daily for alcohol withdrawal taper -Continuous IV hydration. -Thiamine 100 mg twice a day -Multivitamin daily -Folate 1 mg daily -Seizure, fall, aspiration, and elopement precautions in place. -Urine drug screen positive for marijuana -Continued close monitoring of electrolytes and replace as needed. -Telemetry monitoring. -Continue Keppra 750 mg twice daily -Case management to assist with discharge to alcohol rehab facility Hypokalemia, -We will continue to monitor and replace as needed Hypernatremia and hyperchloremia secondary to dehydration resulting from excessive daily alcohol use, resolved with IV fluid hydration Patient's hypernatremia resolved with IV fluid hydration. Continue with fluids as long as patient's oral intake remains poor Hypomagnesemia -Replace and monitor Nicotine dependence Nicotine patch Cannabinoid abuse -Patient encouraged to stop daily use of cannabis. CODE STATUS: Full code DVT prophylaxis: Heparin Discussed with: Patient and RN Anticipated discharge date: Clinical course to determine Anticipated patient to be discharged to [facility]. Anticipate discharge plan possibly within 24-48 hours. Patient's overall withdrawal symptoms improved
[2021-10-31] MEDS ORDERED: NICOTINE 21MG/24HR PATCH TRANSDERM SCH (21:00)
[2021-11-01] MEDS: SODIUM CHLORIDE 0.9% 1,000 ML IV SCH (06:03)
[2021-11-01] MEDS: PANTOPRAZOLE 40 MG TABLET PO SCH ×2 (08:43→17:04)
[2021-11-01] MEDS: HEPARIN SODIUM,PORCINE/PF 5,000 UNIT/0.5 ML SYRINGE SQ SCH ×2 (08:43→17:04)
[2021-11-01] MEDS: THIAMINE 100 MG TAB PO SCH ×2 (08:43→17:04)
[2021-11-01] MEDS: diazePAM 5 MG TAB PO SCH ×2 (08:43→17:04)
[2021-11-01 09:14] VITALS: RESP 18
[2021-11-01 09:37] LABS: African American GFR (CKD) 130.5 (60.0-200.0); Albumin 3.7 g/dL (3.8-4.9); Albumin/Globulin Ratio 1.69 (1.60-3.17); Anion Gap 9.7 mmol/L (10.00-18.00); BUN/Creat Ratio 11.66 Ratio (12.00-20.00); Blood Urea Nitrogen 9.6 mg/dL (9.0-27.0); Calcium 8.5 mg/dL (8.7-10.3); Carbon Dioxide 23.4 mmol/L (20.0-27.5); Globulin 2.2 g/dL (1.6-3.3); Non-African American GFR(CKD) 112.6 (60.0-200.0); Potassium 3.8 mmol/L (3.5-5.5); Total Bilirubin 0.7 mg/dL (0.30-1.20); Total Protein 5.9 g/dL (6.2-8.2)
[2021-11-01 15:40] VITALS: BP 145/88; PULSE 86; TEMP 97.5
--- NOTE | 2021-11-01 17:14 | P.DS ---
Providers Date of admission: 10/28/21 11:30 Expected date of discharge: 11/01/21 Attending physician: Jasmina Ma MD Primary care physician: Stated None Hospital Course: Patient is a very pleasant 36-year-old male with a past medical history of daily cannabis use, nicotine dependence, alcohol abuse, alcohol cirrhosis and seizures. He presented to the emergency department with his family at bedside secondary to concerns of alcohol withdrawal and recent alcohol withdrawal resulting in multiple seizures and prolonged hospitalization at [facility]. Patient reported last drink was just prior to arrival and reports drinking anywhere from a fifth of whiskey to a half a gallon of whiskey daily. Patient states that he would like some assistance with detoxing and is interested in an inpatient drug and alcohol rehab once safely detoxed in the hospital. Patient reported feeling very anxious and tremulous, he otherwise denied having any complaints including headache, lightheadedness, dizziness, chest pain, palpitations, shortness of breath, nausea, vomiting, or experiencing any numbness/tingling/weakness in his extremities. Patient denied having any suicidal or homicidal ideations and denies having any tactile, auditory, or vi sual hallucinations. Patient denied any recent falls or injuries. In the emergency department, patient underwent full evaluation. Labs completed, CBC was unremarkable and serum alcohol level was 455, urine drug screen positive for marijuana, CMP revealing hypernatremia with sodium of 149, hypokalemia with potassium of 3.4, hyperchloremia with chloride of 113 and examined enteritis with AST of 173, ALT 138, and alkaline phosphatase of 152. Patient was placed on CIWA protocol and given Ativan as needed. Schedule diazepam was added for better withdrawal symptom control. His hypernatremia, hypokalemia and metabolic derangements resolved with IV hydration. Patient was seen and examined on 11/01/2021. His father is at bedside. Patient is requesting discharge home as he would like to call [facility] on Tuesday for enrollment in inpatient alcohol detox. His father is agreeable to the plan. He is prescribed diazepam 5 mg by mouth 3 times a day as needed for alcohol withdrawal symptoms. Patient advised to not mix alcohol with diazepam as it could lead to respiratory depression and sudden . This complex discharge took about 45 minutes to complete. General: [non toxic], [no distress], [appears at stated age] Derm: [warm], [dry] Head: [atraumatic], [normocephalic], [symmetric] Eyes: [EOMI], [no lid lag], [anicteric sclera] Mouth: [no lip lesion], [mucus membranes moist] Cardiovascular: [S1S2 reg], [no murmur] Lungs: [CTA bilateral], [no rhonchi, no rales] , [no accessory muscle use] Ext: [no gross muscle atrophy], [no edema], [no contractures] Neuro: [no focal neuro deficits] Psych: [Alert], [oriented], [appropriate affect] Discharge diagnoses: EtOH abuse with withdrawal symptoms Transaminitis Nicotine dependence Cannabinoid abuse Result: Hypernatremia, hypokalemia, hypomagnesemia Patient Condition at Discharge: Stable Plan - Discharge Summary Discharge Rx Participant: Yes New Discharge Prescriptions: New Thiamine [Vitamin B-1] 100 mg PO BID-W/MEALS tab diazePAM [Valium] 5 mg PO TID PRN #9 tab PRN Reason: Alcohol Withdrawal Continue levETIRAcetam [Keppra] 750 mg PO BID Omeprazole 20 mg PO BID Discharge Medication List Omeprazole 20 mg PO BID 10/28/21 [History] levETIRAcetam [Keppra] 750 mg PO BID 10/28/21 [History] Thiamine [Vitamin B-1] 100 mg PO BID-W/MEALS tab 11/01/21 [Rx] diazePAM [Valium] 5 mg PO TID PRN #9 tab 11/01/21 [Rx] Follow up Appointment(s)/Referral(s): None,Stated [Primary Care Provider] - 1-2 days Activity/Diet/Wound Care/Special Instructions: Diet: Regular Follow-up with your PCP within 3 days of discharge. Please do not mix diazepam with alcohol as it could lead to respiratory depression and sudden . Please call [facility] inpatient alcohol detox on Tuesday for enrollment. Discharge Disposition: HOME SELF-CARE
== END 2021-11-01 19:25 | disposition home or self-care (01) | DRG 897 ==
LOC: EC 08:56 → 4SSUR 11:30
PROVIDERS: ADMIT Internal Medicine; ATTEND Internal Medicine
DX: F10.229 Alcohol dependence with intoxication, unspecified (principal); E87.0 Hyperosmolality and hypernatremia; F10.239 Alcohol dependence with withdrawal, unspecified; F12.10 Cannabis abuse, uncomplicated; Z71.51 Drug abuse counseling and surveillance of drug abuser; E83.42 Hypomagnesemia; E87.6 Hypokalemia; E87.8 Other disorders of electrolyte and fluid balance, not elsewhere classified; R74.01 Elevation of levels of liver transaminase levels; F17.210 Nicotine dependence, cigarettes, uncomplicated; G40.909 Epilepsy, unspecified, not intractable, without status epilepticus; K52.9 Noninfective gastroenteritis and colitis, unspecified; K70.30 Alcoholic cirrhosis of liver without ascites; Y90.8 Blood alcohol level of 240 mg/100 ml or more; Z79.899 Other long term (current) drug therapy; Z28.310 Unvaccinated for COVID-19; Z88.0 Allergy status to penicillin
CPT/HCPCS: 36415; 80053; 80306; 80320; 81003; 83690; 83735; 85025; 85027; 93005; 96361; 96374; 99285